=== PATIENT | female | born 1950 | race Caucasian/White ===

== ENCOUNTER 2017-04-10 10:00 | Emergency (ER) | payer BC ==
--- NOTE | 2017-04-10 10:12 | PDOC ---
History of Present Illness - General Stated Complaint: INSECT BITES Time Seen by Provider: 04/10/17 10:03 History Source: Patient Exam Limitations: No Limitations - History of Present Illness Initial Comments: 66 yo F presents with itching of her limbs and face s/p multiple mosquito bites. She states that she spent the weekend at her house in the [facility]. She was outside yesterday for an extended period of time while talking to a neighbor , and she was bitten. Initially she noted itching to the left posterior thigh and the top of her head, but she scratched her head to the point that it bled. This morning she noted that her eyes felt puffy, and when she saw a mirror, she saw that her forehead and eyes were puffy. She has not taken anything for the itching, but became concerned that it was descending down her face. Denies SOB, difficulty swallowing. No sensation of throat closing. Past History - Past Medical History Allergies/Adverse Reactions: Allergies Allergy/AdvReac Type Severity Reaction Status Date / Time No Known Allergies Allergy Verified 04/10/17 10:13 Home Medications: Ambulatory Orders Prednisone [Deltasone -] 40 mg PO DAILY #8 tablet 04/10/17 Review of Systems - Review of Systems Able to Perform ROS?: Yes Comments:: GENERAL/CONSTITUTIONAL: No fever or chills. No weakness. HEAD, EYES, EARS, NOSE AND THROAT: No change in vision. No ear pain or discharge. No sore throat. CARDIOVASCULAR: No chest pain or shortness of breath. RESPIRATORY: No cough, wheezing, or hemoptysis. GASTROINTESTINAL: No nausea, vomiting, diarrhea or constipation. MUSCULOSKELETAL: No joint or muscle swelling or pain. No neck or back pain. SKIN: Multiple insect bites. *Physical Exam - Physical Exam Comments: GENERAL: Awake, alert, and fully oriented, in no acute distress HEAD: No signs of trauma EYES: PERRLA, EOMI, sclera anicteric, conjunctiva clear ENT: Auricles normal inspection, hearing grossly normal, nares patent, oropharynx clear without exudates. Moist mucosa NECK: Normal ROM, supple, no lymphadenopathy, JVD, or masses LUNGS: Breath sounds equal, clear to auscultation bilaterally. No wheezes, and no crackles HEART: Regular rate and rhythm, normal S1 and S2, no murmurs, rubs or gallops EXTREMITIES: Normal range of motion, no edema. No clubbing or cyanosis. No cords , erythema, or tenderness NEUROLOGICAL: Cranial nerves II through XII grossly intact. Normal speech, normal gait SKIN: Warm, Dry, normal turgor. +Excoriated erythematous lesions to the top of the head. +Mild boggy edema to the forehead and periorbital areas. + Erythematous lesions x2 to the posterior L thigh. Medical Decision Making - Medical Decision Making Localized allergic reactions to insect bites/stings. No airway involvement. Prednisone given mainly due to the swelling to the forehead and eyes. Benadryl as needed for itching. Counseled her to use bug spray, preferably DEET when she is outside in the future. *DC/Admit/Observation/Transfer Diagnosis at time of Disposition: Allergic reaction to insect sting Qualifiers: Encounter type: initial encounter Injury intent: accidental or unintentional Qualified Code(s): T63.481A - Toxic effect of venom of other arthropod, accidental (unintentional), initial encounter - Discharge Dispostion Disposition: HOME Condition at time of disposition: Stable Admit: No - Prescriptions Prescriptions: Prednisone [Deltasone -] 40 mg PO DAILY #8 tablet - Patient Instructions Printed Discharge Instructions: DI for Insect Bites and Stings
[2017-04-10 10:20] VITALS: BP 147/75; PULSE 89; TEMP 99.6; BMI 23.8
[2017-04-10] MEDS ORDERED: predniSONE 20 MG TABLET (UD) ONE (10:25)
[2017-04-10] MEDS ORDERED: diphenhydrAMINE HCL 25 MG CAPSULE (FP) PO ONE ×2 (10:25→10:30)
[2017-04-10] MEDS ORDERED: predniSONE 20 MG TABLET (UD) PO ONE (10:30)
== END 2017-04-10 10:29 | disposition home or self-care (01) ==
LOC: FER 10:00
DX: T63.481A Toxic effect of venom of other arthropod, accidental (unintentional), initial encounter (principal); Y93.89 Activity, other specified; Y92.9 Unspecified place or not applicable
CPT/HCPCS: 99281-25